=== PATIENT | male | born 1940 | race Caucasian/White ===

== ENCOUNTER 2023-03-17 10:07 | Emergency (ER) | payer OTHER | END 2023-03-17 10:40 | disposition home or self-care (01) | LOC: MADERS 10:07 | DX: E11.621 Type 2 diabetes mellitus with foot ulcer (principal); L97.529 Non-pressure chronic ulcer of other part of left foot with unspecified severity; L03.116 Cellulitis of left lower limb; E78.00 Pure hypercholesterolemia, unspecified; I10 Essential (primary) hypertension | CPT/HCPCS: 99283 ==

== ENCOUNTER 2023-06-04 07:53 | Emergency (ER) | payer OTHER ==
[2023-06-04] MEDS ORDERED: Triamcinolone 40 MG/ML VIAL ONE (09:03)
[2023-06-04] MEDS ORDERED: Lidocaine 1% PF 5 ML VIAL ONE (09:03)
== END 2023-06-04 09:49 | disposition home or self-care (01) ==
LOC: MADERS 07:53
DX: S83.92XA Sprain of unspecified site of left knee, initial encounter (principal); M25.462 Effusion, left knee; I10 Essential (primary) hypertension; E11.42 Type 2 diabetes mellitus with diabetic polyneuropathy; Z87.891 Personal history of nicotine dependence; W18.30XA Fall on same level, unspecified, initial encounter
CPT/HCPCS: 20610; 96374; J3301

== ENCOUNTER 2023-06-24 11:53 | Outpatient (CLI) | payer OTHER | END 2023-06-24 11:54 | disposition home or self-care (01) | LOC: MADRAD 11:53 | PROVIDERS: ATTEND Family Medicine | DX: Z01.818 Encounter for other preprocedural examination (principal) | CPT/HCPCS: 71046; 93005; 93010 ==

== ENCOUNTER 2023-08-14 17:51 | Inpatient (IN) | payer OTHER ==
[2023-08-14 18:18] VITALS: BMI 39.3
[2023-08-14] MEDS ORDERED: HYDROcodone/Acetaminophen 10/325 mg Tablet PO PRN (18:26)
[2023-08-14] MEDS ORDERED: Glucagon 1 MG/ML KIT IM PRN (18:34)
[2023-08-14] MEDS ORDERED: Dextrose 50% Abboject 50 ML SYRINGE SLOW IVP PRN (18:34)
[2023-08-14] MEDS ORDERED: HumaLOG 300 UNITS/3 ML VIAL SC PRN (18:34)
[2023-08-14] MEDS: metFORMIN 500 MG TAB PO SCH (19:49)
[2023-08-14] MEDS: Rosuvastatin 10 MG TAB PO SCH (19:49)
[2023-08-14] MEDS: Tamsulosin HCl 0.4 MG CAP PO SCH (19:49)
[2023-08-14] MEDS: Gabapentin 300 MG CAP PO SCH (19:49)
[2023-08-14] MEDS: HYDROcodone/Acetaminophen 10/325 mg Tablet PO PRN (19:51)
[2023-08-14] MEDS: Aspirin 81 mg Enteric Coated Tablet PO SCH (19:52)
[2023-08-15] MEDS: Valsartan 80 MG TAB PO SCH (08:37)
[2023-08-15] MEDS: glipiZIDE 5 MG TAB PO SCH (08:38)
[2023-08-15] MEDS: Hydrochlorothiazide 25 MG TAB PO SCH (08:38)
[2023-08-15] MEDS ORDERED: Senokot S 8.6-50 MG TAB PO PRN (12:54)
[2023-08-15] MEDS ORDERED: Polyethylene Glycol 3350 17 GM Packet PO PRN (13:41)
[2023-08-16] MEDS: FLU VACC QS2023(65UP)/MF59C/PF 60 MCG/0.5 ML SYRINGE IM ONE (08:49)
[2023-08-16] MEDS ORDERED: Polyethylene Glycol 3350 17 GM Packet PO SCH (09:00)
[2023-08-16] MEDS: HYDROcodone/Acetaminophen 5/325 mg Tablet PO PRN (14:11)
[2023-08-16] MEDS: Ferrous Gluconate 324 MG TAB PO SCH (14:12)
[2023-08-17] MEDS: Ferrous Gluconate 324 MG TAB PO SCH (08:43)
[2023-08-18 07:00] LABS: Anion Gap 12 mmol/L (10-20); BUN (Urea Nitrogen) 20 mg/dL (8.4-25.7); Calc. Creatinine Clearance 117 mL/min (70-130); Calcium 8.8 mg/dL (7.8-10.44); Carbon Dioxide 29 mmol/L (23-31); Chloride 105 mmol/L (98-107); Estimated GFR 87; Glucose 79 mg/dL (83-110); Potassium 3.7 mmol/L (3.5-5.1); Sodium 142 mmol/L (136-145)
[2023-08-18 07:10] LABS: Hematocrit 33.3 % (42.0-52.0); Hemoglobin 11.1 g/dL (14.0-18.0); Mean Corpuscular HGB CONC 33.4 g/dL (32.0-36.0); Mean Corpuscular Hemoglobin 32.4 pg (27.0-31.0); Platelet Count 155 10x3/uL (130-400); Red Blood Cell (RBC) Count 3.43 mill/uL (4.70-6.10); White Blood Cell (WBC) Count 5.9 10x3/uL (4.8-10.8)
[2023-08-18] MEDS: Lantiseptic Ointment 130 GM JAR TOP SCH ×2 (15:01→20:36)
[2023-08-19] MEDS: glipiZIDE 5 MG TAB PO SCH (08:26)
[2023-08-22 16:10] VITALS: BP 145/68; TEMP 98.7
== END 2023-08-22 17:00 | disposition home or self-care (01) | DRG 948 ==
LOC: MADMS 17:51
PROVIDERS: ADMIT Family Medicine; ATTEND Family Medicine
PROC: 5A09357 Assistance with Respiratory Ventilation, Less than 24 Consecutive Hours, Continuous Positive Airway Pressure (ICD-10-PCS; principal; 2023-08-17)
DX: R53.81 Other malaise (principal); E11.40 Type 2 diabetes mellitus with diabetic neuropathy, unspecified; I10 Essential (primary) hypertension; M17.0 Bilateral primary osteoarthritis of knee; Z96.642 Presence of left artificial hip joint; Z88.1 Allergy status to other antibiotic agents; Z79.4 Long term (current) use of insulin; Z79.84 Long term (current) use of oral hypoglycemic drugs; Z79.82 Long term (current) use of aspirin; Z79.899 Other long term (current) drug therapy; E78.5 Hyperlipidemia, unspecified; N40.0 Benign prostatic hyperplasia without lower urinary tract symptoms; Z96.652 Presence of left artificial knee joint; D64.89 Other specified anemias; E66.9 Obesity, unspecified; Z68.39 Body mass index [BMI] 39.0-39.9, adult
CPT/HCPCS: 36416; 80048; 85027